=== PATIENT | male | born 1940 | race Caucasian/White ===

== ENCOUNTER 2018-07-19 19:16 | Observation (INO) ==
[2018-07-19] MEDS ORDERED: Isovue-370 500 ML INFUS..BTL IV ONE (19:38)
--- NOTE | 2018-07-19 19:40 | Emergency Department Note ---
Disposition Clinical Impression: Neck mass Disposition: Admitted As Inpatient Condition: Good General Adult HPI - General Chief complaint: UC Neck Pain Stated complaint: Neck pain, MOORE trouble swallowing Time Seen by Provider: 07/19/18 19:23 Source: patient, family Limitations: no limitations - History of Present Illness Pain Scale: 9 - Related Data Home Medications Medication Instructions Recorded Confirmed RX: Aspirin [Adult Aspirin] 81 mg PO DAILY 07/19/18 07/19/18 RX: Cholecalciferol (D-3) [Vitamin 2,000 unit PO DAILY 07/19/18 07/19/18 D] Previous Rx's Medication Instructions Recorded RX: Cyclobenzaprine [Flexeril] 10 mg PO BID PRN 30 Days #60 tablet 07/20/18 Allergies Allergy/AdvReac Type Severity Reaction Status Date / Time No Known Allergies Allergy Verified 07/19/18 19:27 Past Medical History - Past Medical History Medical history: Reports: other Psychiatric history: Reports: no psych history - Social History Smoking Status: Never smoker Smokeless Tobacco Status: No Alcohol use: Reports: none Drug use: Reports: none Physical Exam - General Limitations: no limitations General appearance: alert Course Vital Signs Temperature 98.1 F 07/19/18 19:28 Pulse Rate 86 07/19/18 19:28 Respiratory Rate 20 07/19/18 19:28 Blood Pressure 180/96 07/19/18 19:28 O2 Sat by Pulse Oximetry 98 07/19/18 19:28 Temperature 98.2 F 07/20/18 11:39 Pulse Rate 70 07/20/18 11:39 Respiratory Rate 16 07/20/18 11:39 Blood Pressure 149/81 07/20/18 11:39 O2 Sat by Pulse Oximetry 98 07/20/18 11:39 Oxygen Delivery Oxygen Delivery Room Air Medical Decision Making - Lab Data Result diagrams: 07/20/18 01:03 07/20/18 01:03 Lab Results 07/19/18 07/19/18 07/19/18 Range/Units 19:43 19:49 19:49 WBC 11.2 H (4.3-11.1) K/mcL RBC 5.14 (4.19-5.50) M/mcL Hgb 15.0 (12.9-16.9) g/dL Hct 46.8 (37.5-50.1) % MCV 91.1 (83.0-100.0) fL MCH 29.2 (28.0-33.3) pg MCHC 32.1 (31.6-35.5) g/dL RDW 13.0 (11.5-14.5) % Plt Count 264 (140-400) K/mcL MPV 9.7 (9.4-12.4) fL Immature Gran % 0.3 (0-4) % Seg Neutrophils % 66.1 % Lymphocytes % 19.4 % Monocytes % 12.7 % Eosinophils % 1.1 % Basophils % 0.4 % Neutrophils # 7.4 (1.6-8.9) K/mcL Lymphocytes # 2.2 (0.6-4.6) K/mcL Monocytes # 1.4 H (0.0-1.3) K/mcL Eosinophils # 0.1 (0.0-0.6) K/mcL Basophils # 0.1 (0.0-0.2) K/mcL ESR 47 H (0-10) mm/hr PT 11.5 (9.4-12.1) Seconds INR 1.0 Sodium (136-145) mEq/L Potassium (3.5-5.1) mEq/L Chloride (98-107) mEq/L Carbon Dioxide (23-29) mEq/L BUN (8-23) mg/dL Creatinine (0.70-1.30) mg/dL Est GFR ( Amer) (> 60) Est GFR (Non-Af Amer) (> 60) BUN/Creatinine Ratio (6-26) Glucose (70-105) mg/dL Calculated Osmolality (280-300) Lactic Acid (0.5-2.2) mmol/L Calcium (8.6-10.3) mg/dL Total Bilirubin (0.3-1.0) mg/dL AST (13-39) Units/L ALT (7-52) Units/L Alkaline Phosphatase (34-104) Units/L C-Reactive Protein (Less than 10) mg/L Serum Total Protein (6.4-8.9) g/dL Albumin (3.5-5.7) g/dL Globulin (2.4-3.5) g/dL Albumin/Globulin Ratio (1.1-2.2) TSH (0.340-5.600) mcIU/mL 07/19/18 07/19/18 Range/Units 19:49 19:49 WBC (4.3-11.1) K/mcL RBC (4.19-5.50) M/mcL Hgb (12.9-16.9) g/dL Hct (37.5-50.1) % MCV (83.0-100.0) fL MCH (28.0-33.3) pg MCHC (31.6-35.5) g/dL RDW (11.5-14.5) % Plt Count (140-400) K/mcL MPV (9.4-12.4) fL Immature Gran % (0-4) % Seg Neutrophils % % Lymphocytes % % Monocytes % % Eosinophils % % Basophils % % Neutrophils # (1.6-8.9) K/mcL Lymphocytes # (0.6-4.6) K/mcL Monocytes # (0.0-1.3) K/mcL Eosinophils # (0.0-0.6) K/mcL Basophils # (0.0-0.2) K/mcL ESR (0-10) mm/hr PT (9.4-12.1) Seconds INR Sodium 140 (136-145) mEq/L Potassium 4.4 (3.5-5.1) mEq/L Chloride 101 (98-107) mEq/L Carbon Dioxide 28 (23-29) mEq/L BUN 21 (8-23) mg/dL Creatinine 1.30 (0.70-1.30) mg/dL Est GFR ( Amer) > 60 (> 60) Est GFR (Non-Af Amer) 54 L (> 60) BUN/Creatinine Ratio 16 (6-26) Glucose 102 (70-105) mg/dL Calculated Osmolality 293 (280-300) Lactic Acid 2.0 (0.5-2.2) mmol/L Calcium 9.4 (8.6-10.3) mg/dL Total Bilirubin 0.5 (0.3-1.0) mg/dL AST 15 (13-39) Units/L ALT 14 (7-52) Units/L Alkaline Phosphatase 52 (34-104) Units/L C-Reactive Protein 40 H (Less than 10) mg/L Serum Total Protein 7.8 (6.4-8.9) g/dL Albumin 4.2 (3.5-5.7) g/dL Globulin 3.6 H (2.4-3.5) g/dL Albumin/Globulin Ratio 1.2 (1.1-2.2) TSH 0.688 (0.340-5.600) mcIU/mL Attestation Statement - Attestation Attestation: I examined this patient and my medical decision-making was reviewed with the Resident Physician. I agree with the documented findings, disposition and treatment plan as described except to the extent set forth below. [id number] time provided Patient presents with odynophagia, chills, neck stiffness. On exam he has no pharyngeal swelling. He has a remote history of tonsillectomy. Range of motion with flexion, extension, lateral rotation, side bending of his neck is limited. 22:05: CT neck results reviewed. Thyroid US pursued. Case d/w radiology receptionist ENT by resident physician to arrange close outpatient f/u
[2018-07-19 20:16] LABS: Basophils # 0.1 K/mcL (0.0-0.2); Basophils % 0.4 %; Eosinophils # 0.1 K/mcL (0.0-0.6); Eosinophils % 1.1 %; Hematocrit 46.8 % (37.5-50.1); Immature Granulocytes % 0.3 % (0-4); Lymphocytes # 2.2 K/mcL (0.6-4.6); Lymphocytes % 19.4 %; Mean Corpuscular HGB Conc 32.1 g/dL (31.6-35.5); Mean Corpuscular Hemoglobin 29.2 pg (28.0-33.3); Mean Corpuscular Volume 91.1 fL (83.0-100.0); Mean Platelet Volume 9.7 fL (9.4-12.4); Monocytes # 1.4 K/mcL (0.0-1.3); Monocytes % 12.7 %; Neutrophils # 7.4 K/mcL (1.6-8.9); Platelet Count 264 K/mcL (140-400); Red Blood Count 5.14 M/mcL (4.19-5.50); Segmented Neutrophils % 66.1 %
[2018-07-19 20:22] LABS: Prothrombin Time 11.5 Seconds (9.4-12.1)
[2018-07-19 20:28] LABS: Alanine Aminotransferase 14 Units/L (7-52); Albumin 4.2 g/dL (3.5-5.7); Albumin/Globulin Ratio 1.2 (1.1-2.2); Alkaline Phosphatase 52 Units/L (34-104); Aspartate Amino Transferase 15 Units/L (13-39); BUN/Creatinine Ratio 16 (6-26); Bilirubin,Total 0.5 mg/dL (0.3-1.0); Blood Urea Nitrogen 21 mg/dL (8-23); C-Reactive Protein 40 mg/L (Less than 10); Calcium 9.4 mg/dL (8.6-10.3); Carbon Dioxide 28 mEq/L (23-29); Chloride 101 mEq/L (98-107); Globulin 3.6 g/dL (2.4-3.5); Glucose 102 mg/dL (70-105); Osmolality,Calculated 293 (280-300); Potassium 4.4 mEq/L (3.5-5.1); Sodium 140 mEq/L (136-145); Total Protein 7.8 g/dL (6.4-8.9); eGFR For Non-African Americans 54 (> 60)
--- NOTE | 2018-07-19 20:55 | Emergency Department Note ---
Disposition Clinical Impression: Neck mass Disposition: Admitted As Inpatient Time of Disposition: 23:05 General Adult HPI - General Chief complaint: ED Neck Pain/Injury Stated complaint: Neck pain, MOORE trouble swallowing Time Seen by Provider: 07/19/18 19:23 Source: patient, family Limitations: no limitations Nursing Notes Reviewed: Yes Vital Signs Reviewed: Yes - History of Present Illness HPI Narrative: Patient is a 77-year-old male who is presenting to [facility] ED for a 3 day history of neck pain, stiffness, odynophagia and dysphagia. The patient states that he noticed neck pain on Monday evening which has progressively worsened until today associated with limited range of motion and difficulty/pain with swallowing. Pt Subjective Complaint: Neck pain/stiffness Onset (ago): day(s) Location: neck Radiation: neck Pain Severity: severe Pain Scale: 9 Quality: dull Consistency: constant Improves with: nothing Worsens with: nothing - Related Data Home Medications Medication Instructions Recorded Confirmed Aspirin [Adult Aspirin] 81 mg PO DAILY 07/19/18 07/19/18 Cholecalciferol (D-3) [Vitamin D] 2,000 unit PO DAILY 07/19/18 07/19/18 Allergies Allergy/AdvReac Type Severity Reaction Status Date / Time No Known Allergies Allergy Verified 07/19/18 19:27 All systems ED: reviewed and negative except as stated. Constitutional: Reports: chills, weakness, night sweats, other (Patient reports dizziness/lightheadedness). Denies: fever ENT ED: Reports: throat pain, dysphagia, other (Odynophagia) Cardiovascular: Denies: chest pain Respiratory: Denies: dyspnea Gastrointestinal: Denies: abdominal pain, nausea, vomiting Musculoskeletal: Reports: neck pain Neurological: Reports: headache Past Medical History - Past Medical History Medical history: Reports: other Psychiatric history: Reports: no psych history - Social History Smoking Status: Never smoker Smokeless Tobacco Status: No Alcohol use: Reports: none Drug use: Reports: none Physical Exam - General Limitations: no limitations General appearance: alert, in distress - Head Head exam: atraumatic, normocephalic - Eye Eye exam: Present: normal appearance, PERRL, EOMI. Absent: scleral icterus, conjunctival injection - Neck Neck exam: Present: trachea midline, tenderness, other (Patient has severely limited range of motion in all planes and difficulty with swallowing). Absent: lymphadenopathy - Chest Chest inspection: Present: normal inspection, symmetric chest wall rise - Respiratory Respiratory exam: Present: normal lung sounds bilaterally. Absent: respiratory distress, accessory muscle use, prolonged expiratory phase - Cardiovascular Cardiovascular exam: Present: regular rate, normal rhythm, normal heart sounds, +S1, +S2. Absent: +S3, +S4 - Abdominal Exam Abdominal exam: Present: soft, Non-Tender, normal bowel sounds. Absent: distention, guarding, rebound, rigidity Course Course Narrative: Patient history, review systems and physical exam are concerning for neck mass. CT scan-neck soft tissue to be performed to assess for anatomical derangements. CBC, CMP, CRP, ESR, TSH/T4, lactic acid, PT/INR and blood culture to assess for metabolic pathology. Vital Signs Temperature 98.1 F 07/19/18 19:28 Pulse Rate 86 07/19/18 19:28 Respiratory Rate 20 07/19/18 19:28 Blood Pressure 180/96 07/19/18 19:28 O2 Sat by Pulse Oximetry 98 07/19/18 19:28 Temperature 98.7 F 07/19/18 20:24 Pulse Rate 86 07/19/18 19:56 Respiratory Rate 20 07/19/18 19:56 Blood Pressure 169/91 07/19/18 20:24 O2 Sat by Pulse Oximetry 98 07/19/18 20:24 Oxygen Delivery Oxygen Delivery Room Air Medical Decision Making - [facility] Narrative Medical decision making narrative: CT of the soft tissue of the neck showed enlargement of the right lobe of thyroid gland. Patient taken to prior ultrasound for further evaluation. Ultrasound shows consistent results of enlarged right lobe of the thyroid gland. Spoke with ENT and natural remedy consultant reviewed CT imaging. ENT states that they would like to see the patient in the morning for possible scope. Patient to be admitted to [facility] to [facility] hospitalist service. Spoke with admitting hospitalist who agrees with this plan. Patient has been made aware of this plan and is in agreement. - Lab Data Result diagrams: 07/19/18 19:49 07/19/18 19:49 Lab Results 07/19/18 07/19/18 07/19/18 Range/Units 19:43 19:49 19:49 WBC 11.2 H (4.3-11.1) K/mcL RBC 5.14 (4.19-5.50) M/mcL Hgb 15.0 (12.9-16.9) g/dL Hct 46.8 (37.5-50.1) % MCV 91.1 (83.0-100.0) fL MCH 29.2 (28.0-33.3) pg MCHC 32.1 (31.6-35.5) g/dL RDW 13.0 (11.5-14.5) % Plt Count 264 (140-400) K/mcL MPV 9.7 (9.4-12.4) fL Immature Gran % 0.3 (0-4) % Seg Neutrophils % 66.1 % Lymphocytes % 19.4 % Monocytes % 12.7 % Eosinophils % 1.1 % Basophils % 0.4 % Neutrophils # 7.4 (1.6-8.9) K/mcL Lymphocytes # 2.2 (0.6-4.6) K/mcL Monocytes # 1.4 H (0.0-1.3) K/mcL Eosinophils # 0.1 (0.0-0.6) K/mcL Basophils # 0.1 (0.0-0.2) K/mcL ESR 47 H (0-10) mm/hr PT 11.5 (9.4-12.1) Seconds INR 1.0 Sodium (136-145) mEq/L Potassium (3.5-5.1) mEq/L Chloride (98-107) mEq/L Carbon Dioxide (23-29) mEq/L BUN (8-23) mg/dL Creatinine (0.70-1.30) mg/dL Est GFR ( Amer) (> 60) Est GFR (Non-Af Amer) (> 60) BUN/Creatinine Ratio (6-26) Glucose (70-105) mg/dL Calculated Osmolality (280-300) Lactic Acid (0.5-2.2) mmol/L Calcium (8.6-10.3) mg/dL Total Bilirubin (0.3-1.0) mg/dL AST (13-39) Units/L ALT (7-52) Units/L Alkaline Phosphatase (34-104) Units/L C-Reactive Protein (Less than 10) mg/L Serum Total Protein (6.4-8.9) g/dL Albumin (3.5-5.7) g/dL Globulin (2.4-3.5) g/dL Albumin/Globulin Ratio (1.1-2.2) TSH (0.340-5.600) mcIU/mL 07/19/18 07/19/18 Range/Units 19:49 19:49 WBC (4.3-11.1) K/mcL RBC (4.19-5.50) M/mcL Hgb (12.9-16.9) g/dL Hct (37.5-50.1) % MCV (83.0-100.0) fL MCH (28.0-33.3) pg MCHC (31.6-35.5) g/dL RDW (11.5-14.5) % Plt Count (140-400) K/mcL MPV (9.4-12.4) fL Immature Gran % (0-4) % Seg Neutrophils % % Lymphocytes % % Monocytes % % Eosinophils % % Basophils % % Neutrophils # (1.6-8.9) K/mcL Lymphocytes # (0.6-4.6) K/mcL Monocytes # (0.0-1.3) K/mcL Eosinophils # (0.0-0.6) K/mcL Basophils # (0.0-0.2) K/mcL ESR (0-10) mm/hr PT (9.4-12.1) Seconds INR Sodium 140 (136-145) mEq/L Potassium 4.4 (3.5-5.1) mEq/L Chloride 101 (98-107) mEq/L Carbon Dioxide 28 (23-29) mEq/L BUN 21 (8-23) mg/dL Creatinine 1.30 (0.70-1.30) mg/dL Est GFR ( Amer) > 60 (> 60) Est GFR (Non-Af Amer) 54 L (> 60) BUN/Creatinine Ratio 16 (6-26) Glucose 102 (70-105) mg/dL Calculated Osmolality 293 (280-300) Lactic Acid 2.0 (0.5-2.2) mmol/L Calcium 9.4 (8.6-10.3) mg/dL Total Bilirubin 0.5 (0.3-1.0) mg/dL AST 15 (13-39) Units/L ALT 14 (7-52) Units/L Alkaline Phosphatase 52 (34-104) Units/L C-Reactive Protein 40 H (Less than 10) mg/L Serum Total Protein 7.8 (6.4-8.9) g/dL Albumin 4.2 (3.5-5.7) g/dL Globulin 3.6 H (2.4-3.5) g/dL Albumin/Globulin Ratio 1.2 (1.1-2.2) TSH 0.688 (0.340-5.600) mcIU/mL
[2018-07-19 21:10] LABS: Thyroid Stimulating Hormone 0.688 mcIU/mL (0.340-5.600)
[2018-07-19] MEDS ORDERED: *HR* FentaNYL (PF) 100 MCG/2 ML VIAL IVP ONE (22:15)
--- NOTE | 2018-07-19 23:18 | Internal Med History&Physical ---
<Eva Hernandezcornelia - Last Filed: 07/20/18 00:03> Past Med Surg Social Fam HX - Family History Mother Age at : 76 Cause of : cancer Father Age at : 72 Cause of : stroke Internal Medicine - H&P: Meds Aspirin [Adult Aspirin] 81 mg PO DAILY 07/19/18 [History] Cholecalciferol (D-3) [Vitamin D] 2,000 unit PO DAILY 07/19/18 [History] Allergy/AdvReac Type Severity Reaction Status Date / Time No Known Allergies Allergy Verified 07/19/18 19:27 All Systems PM: A 10-system review of systems was performed and is negative for pertinent findings except as documented above in the HPI. - Constitutional Vitals: Temp Pulse Resp BP Pulse Ox 98.6 F 78 16 157/83 94 07/19/18 23:54 07/19/18 23:54 07/19/18 23:54 07/19/18 23:54 07/19/18 23:54 Internal Med - H&P Results - Labs CBC & Chem 7: 07/19/18 19:49 07/19/18 19:49 Labs: Short CBC 07/19/18 Range/Units 19:49 WBC 11.2 H (4.3-11.1) K/mcL Hgb 15.0 (12.9-16.9) g/dL Hct 46.8 (37.5-50.1) % Plt Count 264 (140-400) K/mcL Neutrophils # 7.4 (1.6-8.9) K/mcL BMP 07/19/18 19:49 Sodium 140 Potassium 4.4 Chloride 101 Carbon Dioxide 28 BUN 21 Creatinine 1.30 Glucose 102 Calcium 9.4 Liver Function 07/19/18 Range/Units 19:49 Total Bilirubin 0.5 (0.3-1.0) mg/dL AST 15 (13-39) Units/L ALT 14 (7-52) Units/L Alkaline Phosphatase 52 (34-104) Units/L Albumin 4.2 (3.5-5.7) g/dL - Impressions ITS Impressions Soft Tissue Neck CT 07/19/18 19:38 IMPRESSION: No acute abnormality of the soft tissue structures of the neck. Heterogeneous enlargement of the right thyroid lobe. Further evaluation with ultrasound is recommended. D/ / Noel Lozoya MD / Noel Lozoya MD Interpreting Provider: Noel Lozoya MD Thyroid Ultrasound 07/19/18 20:49 IMPRESSION: NODULE 1: ACR TI-RADS TR4: Recommend: Ultrasound-guided fine needle aspiration. NODULE 2, 3: ACR TI-RADS TR4: Recommend: No follow-up. ACR TI-RADS recommendations: TR4 (4-6 points): FNA if >= 1.5 cm; follow-up if 1.0-1.4 cm in 1, 2, 3, and 5 years D/ / Noel Lozoya MD / Noel Lozoya MD Interpreting Provider: Noel Lozoya MD - Time Spent With Patient Total time spent is greater than 50% in coordination of care (as documented) at patient's floor/unit and/or counseling patient: - Attending Attestation Abebe Jacobson is a 77 year old man with no reported past medical history who presents today with the complaint of difficulty swallowing and pain with deglutition that commenced earlier today. He also complains of throbbing pain in the posterior nuchal area which has been present for the past 3 days and causing difficulty moving his neck as it exacerbates it. He feels as though his neck is stiff. He denies any trauma to the area. No photophobia, fever or chills reported. In the ER he had neck imaging done which showered a significantly heterogeneously enlarged right thyroid lobule with 3 nodules seen. ENT was consulted and will see him in the morning. For now he received fentanyl in the ER for pain relief. PMHx: As above. Surgical history remarkable abdominal hernia repair. SHx: Denies smoking and illicit drug use. FHx: Obtained and noncontributory. Review of systems: All systems reviewed and negative except as listed above in the HPI. Physical exam remarkable for well-developed white man lying still in bed and unable to lateralize at the neck joint and with pain upon flexion and extension of his head. No point tenderness at the cervical spine region. Fullness in the right neck is appreciated with nontender adenopathy and no inflammatory signs present. Skin warm and supple. CTA BL. Normal S1/S2. Abdomen soft, nondistended and nontender. No C/C/E on extremities. Awake, alert and oriented 3. Normal affect. Labs reveal normal TSH, ESR 42. Will admit for observation pending ENT consultation. Administer pain control and muscle relaxants as needed. Keep NPO in the interim. Check TPO in the setting of this nodular goiter to r/o Hashimotos thyroiditis. <Emory Webb - Last Filed: 07/20/18 00:46> Date of Encounter: 07/20/18 Time of Encounter: 23:17 Internal Medicine - H&P: HPI Chief complaint: Neck pain and dysphagia History of present illness: Abebe Jacobson is a 77 year old male with no significant PMH who presented to [facility] ED on 07/19/18 with a chief complaint of neck pain, stiffness, odynophagia and dysphagia of 3 days duration. Patient reported that he states he first noticed his neck pain on Monday evening, and that progressively worsened to the point where he had limited range of motion and difficulty and pain with swallowing. Vital signs on arrival were as follows: Temperature 98.1, pulse 86, respiratory rate 20, blood pressure 180/96, O2 saturation 98. Laboratory analysis was significant for the following: Elevated white count of 11.2 without left shift, ESR 47, CRP 40. TSH was within normal limits at 0.688. CT scan of the neck demonstrated no acute abnormality of the soft tissues of the neck, heterogeneous enlargement of the right thyroid lobe. Thyroid ultrasound was performed; demonstrated a 42 x 35 x 28 mm nodule in the right lobe. Recommendation is ultrasound-guided fine-needle aspiration. ENT was consulted from the emergency department. ENT stated that they would like to see patient in the morning for possible scope. Patient was seen and examined at bedside; he reports that he is still feeling stiffness and pain in his neck. He denies fever, chills, nausea, vomiting, diarrhea, photophobia, confusion, chest pain, cough, or shortness of breath. He has no further complaints at this time. Past Med Surg Social Fam HX - Past Medical History Medical history: other Additional medical history: PVC, Psychiatric history: no psych history - Social History Smoking Status: Never smoker Smokeless Tobacco Status: No Alcohol use: none Drug use: none All Systems PM: A 10-system review of systems was performed and is negative for pertinent findings except as documented above in the HPI. - Constitutional Constitutional: as per HPI, no anorexia, no chills, no lethargy, no malaise, no night sweats, no weakness, no weight gain - EENT Eyes: as per HPI, no change in vision Ears: as per HPI, no decreased hearing, no ear discharge Nose, mouth and throat: as per HPI, dysphagia, neck mass, odynophagia, no lip swelling, no mouth lesions, no mouth pain, no sore throat, no throat swelling, no tongue swelling - Cardiovascular Cardiovascular ROS IM: as per HPI, no chest pain, no claudication, no diaphoresis - Respiratory Respiratory: as per HPI, no cough, no dyspnea, no dyspnea on exertion - Gastrointestinal Gastrointestinal: as per HPI, dysphagia, no abdominal pain, no dyspepsia, no early satiety - Genitourinary Genitourinary ROS male: as per HPI - Musculoskeletal Musculoskeletal ROS IM: as per HPI, neck pain, stiffness, no arthralgias, no atrophy - Integumentary Integumentary IM: as per HPI, no rash - Neurological Neurological ROS: as per HPI, no headache(s) - Psychiatric Psychiatric: as per HPI, no confusion, no visual hallucinations - Endocrine Endocrine IM: as per HPI, no deeping of the voice, no fatigue - Hematologic/Lymphatic Hematologic/Lymphatic: as per HPI, lymphadenopathy - Allergic/Immunologic Allergic/Immunologic: as per HPI, no tongue swelling, no throat swelling, no seasonal rhinorrhea, no lip swelling - Constitutional Vitals: Temp Pulse Resp BP Pulse Ox 98.7 F 86 20 169/91 98 07/19/18 20:24 07/19/18 19:56 07/19/18 19:56 07/19/18 20:24 07/19/18 20:24 General appearance: Present: A&O X 3 Exam: See above - Head Head exam: Present: atraumatic, normocephalic - Eye Eye exam: Present: PERRL, conjuntiva pink, sclera anicteric Pupils: Present: PERRL - Neck Neck exam general surgery: Present: lymphadenopathy, thyromegaly. Absent: full ROM (Restricted range of motion in all planes) - Respiratory Respiratory exam: Present: CTAB. Absent: accessory muscle use, rales, rhonchi, wheezes - Cardiovascular Cardiovascular exam: Present: RRR, +S1, +S2. Absent: diastolic murmur, gallop, rubs, systolic murmur - GI/Abdominal GI/Abdominal exam: Present: normal bowel sounds, soft, no peritoneal signs. Absent: distended, tenderness - Extremities Exam Extremities exam: Present: warm, radial pulses palpable and symmetrical - Neurological Exam Neurological exam: Present: CN II-XII intact, oriented X3, no focal deficits. Absent: pronater drift, facial droop, speech deficit - Psychiatric Psychiatric exam: Present: normal affect, normal mood - Skin Skin exam: Present: dry, intact Internal Med - H&P Results - Labs CBC & Chem 7: 07/19/18 19:49 07/19/18 19:49 Labs: Short CBC 07/19/18 Range/Units 19:49 WBC 11.2 H (4.3-11.1) K/mcL Hgb 15.0 (12.9-16.9) g/dL Hct 46.8 (37.5-50.1) % Plt Count 264 (140-400) K/mcL Neutrophils # 7.4 (1.6-8.9) K/mcL BMP 07/19/18 19:49 Sodium 140 Potassium 4.4 Chloride 101 Carbon Dioxide 28 BUN 21 Creatinine 1.30 Glucose 102 Calcium 9.4 Liver Function 07/19/18 Range/Units 19:49 Total Bilirubin 0.5 (0.3-1.0) mg/dL AST 15 (13-39) Units/L ALT 14 (7-52) Units/L Alkaline Phosphatase 52 (34-104) Units/L Albumin 4.2 (3.5-5.7) g/dL - Impressions ITS Impressions Soft Tissue Neck CT 07/19/18 19:38 IMPRESSION: No acute abnormality of the soft tissue structures of the neck. Heterogeneous enlargement of the right thyroid lobe. Further evaluation with ultrasound is recommended. D/ / Noel Lozoya MD / Noel Lozoya MD Interpreting Provider: Noel Lozoya MD Thyroid Ultrasound 07/19/18 20:49 IMPRESSION: NODULE 1: ACR TI-RADS TR4: Recommend: Ultrasound-guided fine needle aspiration. NODULE 2, 3: ACR TI-RADS TR4: Recommend: No follow-up. ACR TI-RADS recommendations: TR4 (4-6 points): FNA if >= 1.5 cm; follow-up if 1.0-1.4 cm in 1, 2, 3, and 5 years D/ / Noel Lozoya MD / Noel Lozoya MD Interpreting Provider: Noel Lozoya MD - Assessment and plan (1) Thyroid nodule Current Visit: Yes Status: Acute Assessment and plan: Patient presented with difficulty swallowing and neck pain of 3 days duration - CT scan of the neck demonstrated heterogeneous enlargement of the right thyroid lobe - Thyroid ultrasound demonstrates 42 x 35 x 28 mm nodule in the right lobe - ENT was consulted from the emergency department; will see patient in the morning for possible scope Plan: - NPO diet - Will obtain TPO - Pain control and muscle relaxants PRN - Time Spent With Patient Total time spent is greater than 50% in coordination of care (as documented) at patient's floor/unit and/or counseling patient: 25 - 35 minutes
[2018-07-19] MEDS ORDERED: Ketorolac 15 MG/ML VIAL IVP ONE (23:25)
[2018-07-19] MEDS ORDERED: D5% in Lactated Ringers 1,000 ML IVC SCH (23:30)
[2018-07-20] MEDS ORDERED: Ketorolac 15 MG/ML VIAL IVP ONE (00:26)
[2018-07-20] MEDS ORDERED: Naloxone 0.4 MG/ML INJ IVP PRN (00:45)
[2018-07-20 01:37] LABS: Basophils % 0.3 %; Eosinophils # 0.1 K/mcL (0.0-0.6); Eosinophils % 0.5 %; Hematocrit 40.4 % (37.5-50.1); Immature Granulocytes % 0.4 % (0-4); Lymphocytes # 1.9 K/mcL (0.6-4.6); Mean Corpuscular HGB Conc 33.2 g/dL (31.6-35.5); Mean Corpuscular Hemoglobin 29.5 pg (28.0-33.3); Mean Platelet Volume 9.6 fL (9.4-12.4); Monocytes # 1.3 K/mcL (0.0-1.3); Monocytes % 11.3 %; Platelet Count 258 K/mcL (140-400); Red Blood Count 4.54 M/mcL (4.19-5.50); Red Cell Distribution Width 13.2 % (11.5-14.5); Segmented Neutrophils % 70.5 %
[2018-07-20 01:41] LABS: Hemoglobin 13.4 g/dL (12.9-16.9)
[2018-07-20 01:57] LABS: BUN/Creatinine Ratio 16 (6-26); Blood Urea Nitrogen 19 mg/dL (8-23); Calcium 8.8 mg/dL (8.6-10.3); Carbon Dioxide 24 mEq/L (23-29); Chloride 105 mEq/L (98-107); Glucose 132 mg/dL (70-105); Osmolality,Calculated 286 (280-300); Potassium 4.1 mEq/L (3.5-5.1); Sodium 136 mEq/L (136-145); eGFR For Non-African Americans 59 (> 60)
[2018-07-20] MEDS ORDERED: *HR* Heparin 5,000 UNIT/ML VIAL SQ SCH (06:00)
--- NOTE | 2018-07-20 09:37 | Internal Med Progress Note ---
Hospitalist Progress Note - Encounter Date of Encounter: 07/20/18 Time of Encounter: 09:34 - Subjective Interval History: 77-year-old malesignificant past medical history. Patient admitted due to neck pain and difficulty swallowing. Found to have heterogeneously enlarged right thyroid lobule with 3 nodules seen. Patient seen and evaluated at bedside, reports improvement in the swallowing, denies pain with swallowing, stated that he is able to swallow now without difficulties. Denies difficulty breathing, or shortness of breath as well as muffled voice. But reports that he still has neck stiffness - Exam Vitals: Temp Pulse Resp BP Pulse Ox 98.5 F 70 16 137/74 96 07/20/18 07:27 07/20/18 07:27 07/20/18 07:27 07/20/18 07:27 07/20/18 08:19 Exam: General: Alert and oriented x4. In mild/moderate distress due to neck stiffness. Skin: Normal color, no rash, no lesions. HEENT: Palpable right movable thyroid nodule, EOM, pupils equal, round and reactive. Cardiovascular: RRR, Normal S1 & S2, no rubs, murmurs or gallops. Lungs: Clear to auscultation bilaterally, no wheezes or crackles. Abdomen: Obese, Soft, non-tender, no rigidity. Extremities: No deformity, no edema or tenderness, no joint swelling or clubbing. Neurological: Normal cognition and motor skills. CN II-XII intact. Rest of the physical exam is non contributory - Assessment and Plan (1) Thyroid nodule Current Visit: Yes Status: Acute Assessment and Plan: Associated with neck stiffness. Improved difficulty swallowing, no shortness of breath, muffled voice or difficulty breathing. Plan Pain controlled with ketorolac 10mg/IV Q6HR PRN Cyclobenzaprine 10mg/PO BID for muscle spams ENT consulted will follow recommendations Clear liquid diet, advance as tolerated. (2) Leukocytosis Current Visit: Yes Status: Acute Assessment and Plan: Possible due to acute inflammation, signs of acute infection. Elevated ESR. will continue to monitor. DVT Prophylaxis: On heparin 5000 units subcutaneous twice a day - Summary of Assessment and Plan Summary of Assessment and Plan: Patient to remain in the hospital to complete work up for thyroid nodule. ENT evaluation pending. - Time Spent with Patient Total time spent is greater than 50% in coordination of care (as documented) at patient's floor/unit and/or counseling patient: 25 - 35 minutes (time spent 32 minutes.) Plan of Care Discussed with: patient (and the nurse.) Internal Medicine: Result - Labs CBC & Chem 7: 07/20/18 01:03 07/20/18 01:03 Labs: Short CBC 07/19/18 07/20/18 Range/Units 19:49 01:03 WBC 11.2 H 11.3 H (4.3-11.1) K/mcL Hgb 15.0 13.4 D (12.9-16.9) g/dL Hct 46.8 40.4 (37.5-50.1) % Plt Count 264 258 (140-400) K/mcL Neutrophils # 7.4 8.0 (1.6-8.9) K/mcL BMP 07/19/18 07/20/18 19:49 01:03 Sodium 140 136 Potassium 4.4 4.1 Chloride 101 105 Carbon Dioxide 28 24 BUN 21 19 Creatinine 1.30 1.20 Glucose 102 132 H Calcium 9.4 8.8 Liver Function 07/19/18 Range/Units 19:49 Total Bilirubin 0.5 (0.3-1.0) mg/dL AST 15 (13-39) Units/L ALT 14 (7-52) Units/L Alkaline Phosphatase 52 (34-104) Units/L Albumin 4.2 (3.5-5.7) g/dL - ABG Interpretation ABG results: PT/INR, D-dimer PT 11.5 Seconds (9.4-12.1) 07/19/18 19:49 - Impressions Impressions Soft Tissue Neck CT 07/19/18 19:38 IMPRESSION: No acute abnormality of the soft tissue structures of the neck. Heterogeneous enlargement of the right thyroid lobe. Further evaluation with ultrasound is recommended. D/ / Noel Lozoya MD / Noel Lozoya MD Interpreting Provider: Noel Lozoya MD Thyroid Ultrasound 07/19/18 20:49 IMPRESSION: NODULE 1: ACR TI-RADS TR4: Recommend: Ultrasound-guided fine needle aspiration. NODULE 2, 3: ACR TI-RADS TR4: Recommend: No follow-up. ACR TI-RADS recommendations: TR4 (4-6 points): FNA if >= 1.5 cm; follow-up if 1.0-1.4 cm in 1, 2, 3, and 5 years D/ / Noel Lozoya MD / Noel Lozoya MD Interpreting Provider: Noel Lozoya MD Consult Discharge Plan - Plan Referrals: Cristian Modi DO [Primary Care Provider] - 07/25/18 11:30 am () (2) Leukocytosis Qualifiers: Leukocytosis type: unspecified Qualified Code(s): D72.829 - Elevated white blood cell count, unspecified
[2018-07-20 11:40] VITALS: BP 149/81
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
--- NOTE | 2018-07-20 19:17 | ENT - Procedure Note ---
Date of procedure: 07/20/18 Pre-op diagnosis: Tracheal deviation, thyroid goiter Post-op diagnosis: same Implants: Procedure: Flexible laryngoscopy, diagnostic Indications: Patient is a 77-year-old gentleman that presented the emergency department secondary to severe neck pain. He was found to have a large thyroid goiter with a nodule over 4 cm on the right side and tracheal deviation. Flexible laryngoscopy: Procedure was explained to the patient at the bedside verbal consent was obtained. Bilateral nares are sprayed with a 50-50 mixture of oxymetazoline and topical lidocaine. Time was given to allow anesthesia as well as decongestion of the nasal airway. Flexible laryngoscope was then advanced into the left naris. Nasal mucosa was dry and nasal turbinates were slightly enlarged. Scope was further advanced, nasopharynx was within normal limits, tongue base with some enlargement a lymphoid tissue but otherwise normal without mass or lesion and symmetric in appearance, vallecula is clear,, epiglottis sharp without mass or lesion l, piriform sinuses were open without mass or obstruction. True vocal cords had normal mobility but atrophic in appearance. Good glottic opening with full AB duction of the vocal cords bilaterally. Subglottis showed no obstruction. Scope was removed. Patient tolerated this procedure well. Overall assessment shows that she has changes to her mucosa secondary to reflux. There is no obstruction or mass blocking her airway. Airway is fully patent. There is some thinning of the vocal cords consistent with presbyopia larynx. Small punctate area of erythema which is nonobstructive. CPT: 33468 Laryngoscopy, flexible fiberoptic; diagnostic Anesthesia: topical Was there an assistant professor present: No Condition: stable
--- NOTE | 2018-07-20 19:18 | Discharge Summary ---
- NOTES TO OUTPATIENT PROVIDER Notes to Outpatient Provider: Follow-up with an orthopedics within a week of hospital discharge. Follow-up with the ENT for the outpatient thyroid biopsy Orders not resulted at time of discharge: Pending orders 07/19/18 19:39 Culture,Blood [BC] Stat 07/20/18 01:03 Anti-Microsomal Antibody,(TPO) AM 0400 Date of Encounter: 07/20/18 Time of Encounter: 13:21 - Discharge Diagnosis (1) Thyroid nodule Priority: Primary Status: Acute (2) Leukocytosis Priority: Secondary Status: Acute Qualifiers: Leukocytosis type: unspecified Qualified Code(s): D72.829 - Elevated white blood cell count, unspecified (3) Acute muscle stiffness of neck Priority: Secondary Status: Acute Hospital course: Mr. Jacobson is a 77 year old male with no significant past medical history. Who Presented to the emergency room due to difficulty swallowing and neck pain. Soft tissue CT of the neck was done which demonstrated heterogeneously enlarged right thyroid lobule with 3 nodules seen. ENT was consulted and recommended outpatient thyroid nodule biopsy. Perform a flexible laryngoscopy at bedside which revealed airways to be widely patent. Soft tissue CT of the neck reviewed with the radiologist: No acute cervical fracture or process seen. Patient is started on cyclobenzaprine. Recommended to follow-up with sport medicine patient. Patient swallowing difficulty has resolved. Patient has been tolerating by mouth diet. Patient is hemodynamically is stable to be discharged and follow-up as mentioned above. - Time Spent with Patient Total time spent providing and/or coordinating discharge services: Greater than 30 minutes (32) - Discharge Medications Prescriptions: Cyclobenzaprine [Flexeril] 10 mg PO BID PRN 30 Days #60 tablet PRN Reason: Muscle Spasm Home Medications: Aspirin [Adult Aspirin] 81 mg PO DAILY 07/19/18 [History] Cholecalciferol (D-3) [Vitamin D] 2,000 unit PO DAILY 07/19/18 [History] Cyclobenzaprine [Flexeril] 10 mg PO BID PRN 30 Days #60 tablet 07/20/18 [Rx] Allergies/Adverse Reactions: Allergy/AdvReac Type Severity Reaction Status Date / Time No Known Allergies Allergy Verified 07/19/18 19:27 Date of admission: 07/19/18 22:51 Primary care physician: Cristian Modi DO Consults: 07/19/18 22:15 Consult to ENT [CONS] Stat Consulting Provider: ENT Silvana Reason for Consult: neck pain Time Notified: 22:16 Call Completed: Yes - Constitutional Vitals: Temp Pulse Resp BP Pulse Ox 98.2 F 70 16 149/81 98 07/20/18 11:39 07/20/18 11:39 07/20/18 11:39 07/20/18 11:39 07/20/18 11:39 General appearance: Present: A&O X 3 Exam: General: Alert and oriented x4. In mild/moderate distress due to neck stiffness. Skin: Normal color, no rash, no lesions. HEENT: Palpable right movable thyroid nodule, EOM, pupils equal, round and reactive. Cardiovascular: RRR, Normal S1 & S2, no rubs, murmurs or gallops. Lungs: Clear to auscultation bilaterally, no wheezes or crackles. Abdomen: Obese, Soft, non-tender, no rigidity. Extremities: No deformity, no edema or tenderness, no joint swelling or clubbing. Neurological: Normal cognition and motor skills. CN II-XII intact. Rest of the physical exam is non contributory - Patient Status Disposition: Home, Self-Care Condition: Good Functional capacity at discharge: independent ambulation Overall status at discharge: patient is progressing back to baseline - Discharge Instructions Follow Up With: Cristian Modi DO [Primary Care Provider] - 07/25/18 11:30 am () - Diet and Activity Activity: resume usual activities as tolerated Diet: advance to your usual diet
[2018-07-21] MEDS ORDERED: Aspirin Enteric Coated 81 MG Tablet PO SCH (09:00)
== END 2018-07-20 13:47 | disposition home or self-care (01) ==
LOC: 3BNU 19:16 → EMEROOARM 19:16 → 3BNU 23:25
PROVIDERS: ADMIT Internal Medicine; ATTEND Internal Medicine